=== PATIENT | male | born 1955 | race Caucasian/White ===

== ENCOUNTER → 2019-04-08 | Day surgery (SDC) | payer OTHER ==
[~2019-04-08] MED LIST: GLIMEPIRIDE4 MG PO; GLUCAGON FOR INJ 1 MG VIAL ONE; HYOSCYAMINE SULFATE 0.5 MG/ML INJ ONE; LIDOCAINE HCL 2% LOCAL INJ 5 ML SDV VIAL INJ ONE; METFORMIN HCL500 MG PO; MIDAZOLAM HCL 2 MG/2 ML VIAL ONE; PROPOFOL IV EMULSION 10 MG/ML 20 ML VIAL ONE; PROPOFOL IV EMULSION 10 MG/ML 50 ML VIAL ONE; [UNRECOGNIZED DRUG - OTHER] PO
[2019-04-08 11:50] VITALS: BP 117/80
--- NOTE | 2019-04-08 18:24 | Operative Report ---
DATE OF PROCEDURE: 04/08/2019 SURGEON: Javier Conner MD PROCEDURE: Colonoscopy and polypectomy. INDICATIONS FOR COLONOSCOPY: Colorectal cancer screening. MEDICATIONS: The patient was done under MAC, please see anesthesiologist's note. PROCEDURE IN DETAIL: With the patient in left lateral decubitus position, a flexible fiberoptic Olympus colonoscope was advanced. It was inserted into the rectum, advanced all the way to the cecum. One polyp was removed per cold biopsy forceps from the cecum. Two polyps were snared from the ascending colon. One polyp was snared and two polyps were hot biopsied from the hepatic flexure. One polypectomy site was hemoclipped x2. One polyp was snared from the transverse colon. One polyp was hot biopsied from the descending colon. Two polyps were removed per cold biopsy forceps from the sigmoid colon. Diverticular disease was noted to involve the sigmoid colon. One polyp was snared and six polyps were removed in the rectum per cold and hot biopsy forceps. The scope was then retroflexed into the distal rectum and moderate-sized internal hemorrhoids were noted, none of which was actively bleeding. The scope was then straightened out, it was subsequently withdrawn. The patient tolerated procedure well. IMPRESSION: 1. Cecal polyp, removed per cold biopsy forceps. 2. Ascending colon polyps x2, snared. 3. Hepatic flexure, two polyps were snared and one polyp was hot biopsied and hemoclipped x2. 4. Transverse colon polyp x1, snared. 5. Descending colon polyps x1, hot biopsied. 6. Diverticulosis. 7. Sigmoid colon polyps x2, hot biopsied. 8. Rectal polyps x7, three snared and four were removed per cold and hot biopsy forceps. 9. Internal hemorrhoids, none actively bleeding. A total of 17 polyps were removed. PLAN: Follow up histology. Initiate high-fiber, low-fat diet. Initiate high-fiber supplement. The patient will need a followup colonoscopy in one year. Javier Conner MD [facility] [place]/YING /[id number] cc: MD Henry Vences MD
== END | disposition home or self-care (01) ==
LOC: OR 08:25
PROVIDERS: ATTEND Internal Medicine Gastroenterology
DX: Z12.11 Encounter for screening for malignant neoplasm of colon (principal); D12.0 Benign neoplasm of cecum; D12.2 Benign neoplasm of ascending colon; D12.3 Benign neoplasm of transverse colon; D12.8 Benign neoplasm of rectum; K57.30 Diverticulosis of large intestine without perforation or abscess without bleeding; K64.8 Other hemorrhoids; K21.9 Gastro-esophageal reflux disease without esophagitis; I10 Essential (primary) hypertension; E11.9 Type 2 diabetes mellitus without complications; F32.9 Major depressive disorder, single episode, unspecified; Z88.0 Allergy status to penicillin; Z01.810 Encounter for preprocedural cardiovascular examination; Z79.84 Long term (current) use of oral hypoglycemic drugs; Z68.36 Body mass index [BMI] 36.0-36.9, adult
CPT/HCPCS: 36415; 45378; 45384; 45385; 82948; 93005; J1610; J1980; J2001; J2250